=== PATIENT | female | born 1945 | race Two or more races ===

== ENCOUNTER 2017-07-26 11:30 | Inpatient (IN) | payer OTHER ==
[~2017-07-26] VITALS: Ht 160 cm; Wt 67.1 kg
[2017-07-26] MEDS ORDERED: TOPROL XL100 M1 PO (13:09)
[2017-07-26] MEDS ORDERED: METOPROLOL TART50 MG PO (13:10)
[2017-07-26] MEDS ORDERED: CYMBALTA60 MG PO (13:11)
[2017-07-26] MEDS ORDERED: SYNTHROID75 MCG PO (13:12)
[2017-08-02] MEDS ORDERED: DOCUSATE SODIU100 MG PO (14:07)
[2017-08-02] MEDS ORDERED: GABAPENTIN800 MG PO (14:07)
[2017-08-02] MEDS ORDERED: AMOX-CLAV 875-1 EACH PO (14:08)
[2017-08-02] MEDS ORDERED: PERCOCET 5-3251 EACH PO (14:08)
[2017-08-02] MEDS ORDERED: CLONAZEPAM1 MG PO (14:08)
== END 2017-08-03 12:35 | DRG 460 ==
LOC: RECOVERY 11:30 → PED 08-02 05:59 → O/R 08-02 05:59 → SURG 08-02 11:30 → PED 08-02 16:27
PROVIDERS: Orthopaedic Surgery Orthopaedic Surgery of the Spine
PROC: 0SG00AJ Fusion of Lumbar Vertebral Joint with Interbody Fusion Device, Posterior Approach, Anterior Column, Open Approach (ICD-10-PCS; 2017-08-02)
PROC: 07DS3ZZ Extraction of Vertebral Bone Marrow, Percutaneous Approach (ICD-10-PCS; 2017-08-02)
PROC: 0ST20ZZ Resection of Lumbar Vertebral Disc, Open Approach (ICD-10-PCS; 2017-08-02)
PROC: 0SG00A0 Fusion of Lumbar Vertebral Joint with Interbody Fusion Device, Anterior Approach, Anterior Column, Open Approach (ICD-10-PCS; principal; 2017-08-02 15:15)
DX: M48.061 Spinal stenosis, lumbar region without neurogenic claudication (principal); E03.8 Other specified hypothyroidism; I10 Essential (primary) hypertension; M47.816 Spondylosis without myelopathy or radiculopathy, lumbar region